=== PATIENT | female | born 1950 | race Caucasian/White ===

== ENCOUNTER 2022-08-17 11:31 | Inpatient (IN) | payer OTHER ==
[2022-08-17] MEDS ORDERED: dilTIAZem HCL 50 MG/10 ML - 10 ML VIAL IVPUSH ONE ×2 (12:46→14:56)
[2022-08-17] MEDS ORDERED: dilTIAZem HCL 125 MG/25 ML - 25 ML VIAL ONE ×2 (12:52→15:10)
[2022-08-17 13:10] LABS: BASO % 0.9 % (0-2.0); EOS % 0.9 % (0-4.5); HEMATOCRIT 41.1 % (32.4-45.2); HEMOGLOBIN 12.9 GM/dL (10.7-15.3); LYMPH % 19.2 % (8-40); MCH 24.8 pg (25.7-33.7); MCHC 31.3 g/dl (32.0-36.0); MEAN PLT VOLUME 10.7 fl (7.5-11.1); MONO % 6.1 % (3.8-10.2); NEUT % 72.9 % (42.8-82.8); PLATELET COUNT 251 10^3/uL (134-434); RDW 14.9 % (11.6-15.6)
[2022-08-17 13:31] LABS: CALCIUM 8.9 mg/dL (8.5-10.1)
[2022-08-17 13:32] LABS: ALBUMIN 3.2 g/dl (3.4-5.0); BLOOD UREA NITROGEN 23.4 mg/dL (7-18)
[2022-08-17 13:35] LABS: CREATININE 0.7 mg/dL (0.55-1.3)
[2022-08-17 13:36] LABS: BILIRUBIN,TOTAL 0.6 mg/dL (0.2-1)
[2022-08-17 13:37] LABS: TOT PROT 6.1 g/dl (6.4-8.2)
[2022-08-17 13:40] LABS: N-TERMINAL BNP 6848.4 pg/ml (5-125)
[2022-08-17] MEDS ORDERED: FUROSEMIDE 40 MG/4 ML INJECTABLE VIAL IVPUSH ONE (14:25)
[2022-08-17] MEDS ORDERED: FUROSEMIDE 40 MG/4 ML INJECTABLE VIAL ONE (14:28)
[2022-08-17 15:12] LABS: EPI CELLS >36 /uL (0-25.1); HYALINE CASTS 3 /uL (0-3.1); URINE APPEARANCE CLEAR; URINE BACTERIA 340 /uL (0-1359); URINE BILIRUBIN NEGATIVE (NEGATIVE); URINE COLOR YELLOW; URINE GLUCOSE (UA) NEGATIVE (NEGATIVE); URINE KETONE TRACE (NEGATIVE); URINE LEUK ESTERASE 1+ (NEGATIVE); URINE NITRITE NEGATIVE (NEGATIVE); URINE PROTEIN TRACE (NEGATIVE); URINE RBC 9 /uL (0-23.9); URINE UROBILINOGEN 0.2 mg/dL (0.2-1.0); URINE WBC 45 /uL (0-25.8)
[2022-08-17] MEDS ORDERED: METOPROLOL TARTRATE 25 MG TABLET (FP) ONE (21:21)
[2022-08-17] MEDS ORDERED: APIXABAN 5 MG TABLET ONE (21:21)
[2022-08-17] MEDS ORDERED: dilTIAZem HCL 30 MG TABLET ONE (21:21)
[2022-08-17] MEDS: METOPROLOL TARTRATE 50 MG TABLET (FP) PO SCH (21:44)
[2022-08-17] MEDS: APIXABAN 5 MG TABLET PO SCH (21:44)
[2022-08-17] MEDS: dilTIAZem HCL 30 MG TABLET PO SCH (21:44)
[2022-08-18] MEDS ORDERED: METOPROLOL TARTRATE 25 MG TABLET (FP) ONE (06:28)
[2022-08-18] MEDS ORDERED: dilTIAZem HCL 30 MG TABLET ONE ×2 (06:29→06:43)
[2022-08-18] MEDS: METOPROLOL TARTRATE 50 MG TABLET (FP) PO SCH ×2 (06:44→20:59)
[2022-08-18] MEDS: dilTIAZem HCL 30 MG TABLET PO SCH ×3 (06:44→20:59)
[2022-08-18 07:08] LABS: BASO % 0.7 % (0-2.0); HEMATOCRIT 39.7 % (32.4-45.2); HEMOGLOBIN 12.8 GM/dL (10.7-15.3); LYMPH % 24.9 % (8-40); MCH 25.2 pg (25.7-33.7); MCHC 32.2 g/dl (32.0-36.0); MEAN CELL VOLUME 78.3 fl (80-96); MONO % 8.9 % (3.8-10.2); NEUT % 62.5 % (42.8-82.8); PLATELET COUNT 246 10^3/uL (134-434); RBC 5.07 M/mm3 (3.60-5.2); RDW 14.8 % (11.6-15.6); WHITE BLOOD COUNT 8.4 K/mm3 (4.0-10.0)
[2022-08-18] MEDS ORDERED: APIXABAN 5 MG TABLET ONE (09:02)
[2022-08-18] MEDS ORDERED: FUROSEMIDE 40 MG/4 ML INJECTABLE VIAL ONE (09:02)
[2022-08-18] MEDS: APIXABAN 5 MG TABLET PO SCH ×2 (09:10→20:59)
[2022-08-18] MEDS: FUROSEMIDE 40 MG/4 ML INJECTABLE VIAL IVPUSH SCH (09:10)
[2022-08-18] MEDS ORDERED: dilTIAZem HCL 60 MG TABLET ONE (14:15)
[2022-08-18 17:41] VITALS: BMI 30.3
[2022-08-19] MEDS: dilTIAZem HCL 30 MG TABLET PO SCH ×2 (06:21→13:59)
[2022-08-19 06:45] LABS: HEMOGLOBIN 12.6 GM/dL (10.7-15.3); MCH 24.9 pg (25.7-33.7); MCHC 31.6 g/dl (32.0-36.0); MEAN CELL VOLUME 78.9 fl (80-96); MEAN PLT VOLUME 10.3 fl (7.5-11.1); PLATELET COUNT 249 10^3/uL (134-434); RBC 5.07 M/mm3 (3.60-5.2); RDW 15.1 % (11.6-15.6); WHITE BLOOD COUNT 8.4 K/mm3 (4.0-10.0)
[2022-08-19 06:58] LABS: ALBUMIN 3.1 g/dl (3.4-5.0)
[2022-08-19 07:01] LABS: CREATININE 0.8 mg/dL (0.55-1.3)
[2022-08-19 07:02] LABS: BILIRUBIN,TOTAL 0.6 mg/dL (0.2-1)
[2022-08-19 07:03] LABS: TOT PROT 5.8 g/dl (6.4-8.2)
[2022-08-19] MEDS: METOPROLOL TARTRATE 50 MG TABLET (FP) PO SCH (09:19)
[2022-08-19] MEDS: FUROSEMIDE 40 MG/4 ML INJECTABLE VIAL IVPUSH SCH (09:19)
[2022-08-19] MEDS: APIXABAN 5 MG TABLET PO SCH (09:19)
[2022-08-19 09:29] VITALS: RESP 16
[2022-08-19 14:02] VITALS: BP 118/76; PULSE 85; TEMP 97.9
== END 2022-08-19 14:32 | disposition home or self-care (01) | DRG 201 ==
LOC: JER 11:31 → JERBED 16:06 → J2W 08-18 14:44
PROVIDERS: ADMIT Internal Medicine; ATTEND Internal Medicine
DX: I48.91 Unspecified atrial fibrillation (principal); I50.21 Acute systolic (congestive) heart failure; I11.0 Hypertensive heart disease with heart failure; E78.5 Hyperlipidemia, unspecified; R06.02 Shortness of breath; R07.89 Other chest pain; R60.9 Edema, unspecified
CPT/HCPCS: 0241U-QW; 36415; 71045-TC-FY; 76604; 80053; 81003; 82550; 82553; 82607; 83880; 84443; 84484; 85025; 85027; 85379; 87086; 93005; 93010; 93306-TC; 93308; 93970-TC; 99285-25

== ENCOUNTER 2022-12-22 16:17 | Inpatient (IN) | payer OTHER ==
[2022-12-22] MEDS ORDERED: VANCOMYCIN 1 GM in D5W (PRE-DOCKED) 1,000 MG/250 ML IVPB ONE (17:48)
[2022-12-22] MEDS ORDERED: PIPERACILLIN/TAZOB 3.375 GM 3.375 GM in DEXTROSE 5%-WATER - 50 ML IVPB ONE (17:48)
[2022-12-22] MEDS ORDERED: SODIUM CHLORIDE 500 ML IV STA (17:48)
[2022-12-22] MEDS ORDERED: VANCOMYCIN/WATER FOR INJ (PEG) 1,000 MG/200 ML BAG IVPB ONE (18:01)
[2022-12-22] MEDS ORDERED: PIPERACILLIN/TAZOB 3.375 GM 3.375 GM/50 ML BAG IVPB ONE (18:01)
[2022-12-22 19:03] LABS: VENOUS BASE EXCESS -5.6 mmol/L (-2-2); VENOUS O2 SATURATION 42.2 % (70-80); VENOUS PCO2 37.8 mmHg (38-52); VENOUS PH 7.333 (7.310-7.410)
[2022-12-22 19:08] LABS: HEMATOCRIT 43.6 % (32.4-45.2); HEMOGLOBIN 13.6 GM/dL (10.7-15.3); LYMPH % 8.4 % (8-40); MCH 23.1 pg (25.7-33.7); MCHC 31.3 g/dl (32.0-36.0); MEAN CELL VOLUME 73.7 fl (80-96); MEAN PLT VOLUME 9.5 fl (7.5-11.1); MONO % 7.1 % (3.8-10.2); NEUT % 84.5 % (42.8-82.8); PLATELET COUNT 235 10^3/uL (134-434); RBC 5.91 M/mm3 (3.60-5.2); RDW 17.8 % (11.6-15.6); WHITE BLOOD COUNT 12.9 K/mm3 (4.0-10.0)
[2022-12-22 19:10] LABS: EPI CELLS 27 /uL (0-25.1); HYALINE CASTS 20 /uL (0-3.1); PH,URINE 6.5 (5.0-8.0); URINE APPEARANCE TURBID; URINE BACTERIA 8 /uL (0-1359); URINE BILIRUBIN 1+ (NEGATIVE); URINE COLOR DK YELLOW; URINE GLUCOSE (UA) NEGATIVE (NEGATIVE); URINE KETONE NEGATIVE (NEGATIVE); URINE LEUK ESTERASE NEGATIVE (NEGATIVE); URINE NITRITE NEGATIVE (NEGATIVE); URINE PROTEIN 1+ (NEGATIVE); URINE RBC 19 /uL (0-23.9); URINE WBC 23 /uL (0-25.8)
[2022-12-22 19:14] LABS: INR 1.76 (0.83-1.09); PROTHROMBIN TIME (PATIENT) 20.4 SEC (9.7-13.0)
[2022-12-22 19:17] LABS: ACTIVATED PTT 29.7 SECONDS (25.2-36.5)
[2022-12-22 19:27] LABS: CALCIUM 9.5 mg/dL (8.5-10.1)
[2022-12-22 19:28] LABS: BLOOD UREA NITROGEN 42.8 mg/dL (7-18); MAGNESIUM 2.7 mg/dL (1.8-2.4)
[2022-12-22 19:31] LABS: CREATININE 1.4 mg/dL (0.55-1.3); PHOSPHOROUS 4.8 mg/dL (2.5-4.9)
[2022-12-22 19:32] LABS: BILIRUBIN,TOTAL 1.9 mg/dL (0.2-1)
[2022-12-22 19:33] LABS: TOT PROT 6.4 g/dl (6.4-8.2)
[2022-12-22 19:36] LABS: N-TERMINAL BNP 34125.6 pg/ml (5-125)
[2022-12-22 19:41] LABS: LACTIC ACID 3.5 mmol/L (0.4-2.0)
[2022-12-22] MEDS ORDERED: dilTIAZem HCL 30 MG TABLET PO ONE (20:12)
[2022-12-22] MEDS ORDERED: ERYTHROMYCIN 0.5% OPHTHALMIC OINTMENT 3.5 GM TUBE OU STA (20:13)
[2022-12-22] MEDS ORDERED: SODIUM CHLORIDE 250 ML IV STA (20:13)
[2022-12-22] MEDS ORDERED: dilTIAZem HCL 30 MG TABLET ONE (20:27)
[2022-12-22] MEDS ORDERED: ACETAMINOPHEN 1000 MG/100 ML BAG IVPB ONE (21:29)
[2022-12-22 21:41] LABS: URINE CRYSTALS MODERATE /hpf
[2022-12-22] MEDS ORDERED: ACETAMINOPHEN INJECTION 100 ML IVPB ONE (21:43)
[2022-12-22 22:42] LABS: LACTIC ACID 2.9 mmol/L (0.4-2.0)
[2022-12-23 08:35] LABS: BASO % 0.1 % (0-2.0); HEMATOCRIT 40.1 % (32.4-45.2); HEMOGLOBIN 12.5 GM/dL (10.7-15.3); MCHC 31.1 g/dl (32.0-36.0)
[2022-12-23 08:36] LABS: EOS % 0.3 % (0-4.5); LYMPH % 8.2 % (8-40); MCH 22.5 pg (25.7-33.7); MEAN CELL VOLUME 72.4 fl (80-96); MEAN PLT VOLUME 9.8 fl (7.5-11.1); NEUT % 82.4 % (42.8-82.8); PLATELET COUNT 196 10^3/uL (134-434); RBC 5.53 M/mm3 (3.60-5.2); RDW 17.2 % (11.6-15.6); WHITE BLOOD COUNT 12.6 K/mm3 (4.0-10.0)
[2022-12-23 09:16] LABS: CALCIUM 8.9 mg/dL (8.5-10.1)
[2022-12-23 09:17] LABS: ALBUMIN 2.6 g/dl (3.4-5.0); MAGNESIUM 2.5 mg/dL (1.8-2.4)
[2022-12-23 09:18] LABS: BLOOD UREA NITROGEN 41.8 mg/dL (7-18)
[2022-12-23 09:20] LABS: CREATININE 1.2 mg/dL (0.55-1.3)
[2022-12-23 09:22] LABS: TOT PROT 5.4 g/dl (6.4-8.2)
[2022-12-23 09:23] LABS: BILIRUBIN,TOTAL 1.6 mg/dL (0.2-1)
[2022-12-23] MEDS: METOPROLOL TARTRATE 50 MG TABLET (FP) PO SCH ×2 (09:48→22:07)
[2022-12-23] MEDS: APIXABAN 5 MG TABLET PO SCH ×2 (09:48→22:06)
[2022-12-23] MEDS ORDERED: CEFTRIAXONE 1 GM in DEXTROSE 5%-WATER - 50 ML IVPB SCH (10:00)
[2022-12-23] MEDS: FUROSEMIDE 40 MG/4 ML INJECTABLE VIAL IVPUSH SCH (12:29)
[2022-12-23] MEDS: dilTIAZem HCL 25 MG/5 ML - 5 ML VIAL IVPUSH PRN (12:32)
[2022-12-23] MEDS: CEFEPIME 1 GM in DEXTROSE 5%-WATER 100 ML IVPB SCH (17:11)
[2022-12-24] MEDS: CEFEPIME 1 GM in DEXTROSE 5%-WATER 100 ML IVPB SCH ×3 (02:30→17:04)
[2022-12-24 08:28] LABS: HEMATOCRIT 40.7 % (32.4-45.2); HEMOGLOBIN 12.5 GM/dL (10.7-15.3); MCH 22.3 pg (25.7-33.7); MCHC 30.7 g/dl (32.0-36.0); MEAN CELL VOLUME 72.6 fl (80-96); MEAN PLT VOLUME 10.2 fl (7.5-11.1); PLATELET COUNT 210 10^3/uL (134-434); RBC 5.61 M/mm3 (3.60-5.2); RDW 17.2 % (11.6-15.6); WHITE BLOOD COUNT 16.7 K/mm3 (4.0-10.0)
[2022-12-24 08:34] LABS: BLOOD UREA NITROGEN 40.1 mg/dL (7-18)
[2022-12-24 08:35] LABS: ALBUMIN 2.4 g/dl (3.4-5.0); CALCIUM 8.7 mg/dL (8.5-10.1)
[2022-12-24 08:37] LABS: CREATININE 1.2 mg/dL (0.55-1.3)
[2022-12-24 08:39] LABS: BILIRUBIN,TOTAL 1.2 mg/dL (0.2-1); TOT PROT 5.6 g/dl (6.4-8.2)
[2022-12-24] MEDS: FUROSEMIDE 40 MG/4 ML INJECTABLE VIAL IVPUSH SCH (10:05)
[2022-12-24] MEDS: METOPROLOL TARTRATE 50 MG TABLET (FP) PO SCH ×2 (10:05→22:19)
[2022-12-24] MEDS: APIXABAN 5 MG TABLET PO SCH ×2 (10:05→22:20)
[2022-12-24] MEDS: dilTIAZem HCL 25 MG/5 ML - 5 ML VIAL IVPUSH PRN (10:23)
[2022-12-24] MEDS: dilTIAZem HCL 30 MG TABLET PO SCH ×2 (10:29→22:19)
[2022-12-24] MEDS ORDERED: METOPROLOL TARTRATE 5 MG/5 ML VIAL IVPUSH PRN (12:51)
[2022-12-25] MEDS: CEFEPIME 1 GM in DEXTROSE 5%-WATER 100 ML IVPB SCH ×3 (01:56→18:25)
[2022-12-25 08:17] LABS: HEMATOCRIT 40.8 % (32.4-45.2); HEMOGLOBIN 12.8 GM/dL (10.7-15.3); MCH 22.9 pg (25.7-33.7); MCHC 31.4 g/dl (32.0-36.0); MEAN CELL VOLUME 73.1 fl (80-96); MEAN PLT VOLUME 9.5 fl (7.5-11.1); PLATELET COUNT 211 10^3/uL (134-434); RBC 5.57 M/mm3 (3.60-5.2); RDW 17.9 % (11.6-15.6); WHITE BLOOD COUNT 16.1 K/mm3 (4.0-10.0)
[2022-12-25 08:45] LABS: CALCIUM 8.4 mg/dL (8.5-10.1)
[2022-12-25 08:46] LABS: ALBUMIN 2.2 g/dl (3.4-5.0); BLOOD UREA NITROGEN 39.5 mg/dL (7-18)
[2022-12-25 08:49] LABS: CREATININE 1.2 mg/dL (0.55-1.3)
[2022-12-25 08:50] LABS: TOT PROT 5.6 g/dl (6.4-8.2)
[2022-12-25 08:51] LABS: BILIRUBIN,TOTAL 1.4 mg/dL (0.2-1)
[2022-12-25] MEDS: APIXABAN 5 MG TABLET PO SCH ×2 (10:42→22:00)
[2022-12-25] MEDS: FUROSEMIDE 40 MG/4 ML INJECTABLE VIAL IVPUSH SCH (10:42)
[2022-12-25] MEDS: METOPROLOL TARTRATE 25 MG TABLET (FP) PO SCH ×2 (10:42→21:59)
[2022-12-25] MEDS: dilTIAZem HCL 30 MG TABLET PO SCH ×2 (10:42→21:59)
[2022-12-25] MEDS: ACETAMINOPHEN 325 MG TABLET (FP) PO PRN (20:29)
[2022-12-26] MEDS: CEFEPIME 1 GM in DEXTROSE 5%-WATER 100 ML IVPB SCH ×3 (03:19→18:25)
[2022-12-26 08:41] LABS: CALCIUM 8.2 mg/dL (8.5-10.1)
[2022-12-26 08:42] LABS: BLOOD UREA NITROGEN 36.3 mg/dL (7-18)
[2022-12-26 08:45] LABS: CREATININE 0.9 mg/dL (0.55-1.3)
[2022-12-26] MEDS: AMINO ACIDS/PROTEIN HYDROLYS 30 ML LIQUID.PKT PO SCH ×2 (11:18→18:24)
[2022-12-26] MEDS: MULTIVITAMINS (DAILY MVI) TABLET (FP) PO SCH (11:19)
[2022-12-26] MEDS: APIXABAN 5 MG TABLET PO SCH ×2 (11:19→21:45)
[2022-12-26] MEDS: METOPROLOL TARTRATE 25 MG TABLET (FP) PO SCH (11:20)
[2022-12-26] MEDS: ASCORBIC ACID 500 MG TABLET (FP) PO SCH ×2 (11:20→21:45)
[2022-12-26] MEDS: FUROSEMIDE 40 MG/4 ML INJECTABLE VIAL IVPUSH SCH (11:20)
[2022-12-26] MEDS: dilTIAZem HCL 30 MG TABLET PO SCH (11:20)
[2022-12-26] MEDS: AMIODARONE HCL 200 MG TABLET PO SCH ×2 (14:02→21:45)
[2022-12-27] MEDS: CEFEPIME 1 GM in DEXTROSE 5%-WATER 100 ML IVPB SCH ×3 (03:20→17:56)
[2022-12-27 08:13] LABS: BASO % 0.2 % (0-2.0); EOS % 0.7 % (0-4.5); HEMATOCRIT 41.1 % (32.4-45.2); HEMOGLOBIN 12.8 GM/dL (10.7-15.3); LYMPH % 7.8 % (8-40); MCH 22.5 pg (25.7-33.7); MCHC 31.1 g/dl (32.0-36.0); MEAN CELL VOLUME 72.4 fl (80-96); MEAN PLT VOLUME 9.2 fl (7.5-11.1); MONO % 9.5 % (3.8-10.2); NEUT % 81.8 % (42.8-82.8); PLATELET COUNT 250 10^3/uL (134-434); RBC 5.68 M/mm3 (3.60-5.2); RDW 17.5 % (11.6-15.6); WHITE BLOOD COUNT 14.3 K/mm3 (4.0-10.0)
[2022-12-27 09:20] LABS: ALBUMIN 1.8 g/dl (3.4-5.0); BILIRUBIN,TOTAL 1.3 mg/dL (0.2-1); BLOOD UREA NITROGEN 42.3 mg/dL (7-18); CALCIUM 8.3 mg/dL (8.5-10.1); CREATININE 0.9 mg/dL (0.55-1.3); TOT PROT 5.4 g/dl (6.4-8.2)
[2022-12-27] MEDS: FUROSEMIDE 40 MG/4 ML INJECTABLE VIAL IVPUSH SCH (10:04)
[2022-12-27] MEDS: AMINO ACIDS/PROTEIN HYDROLYS 30 ML LIQUID.PKT PO SCH ×2 (10:04→17:56)
[2022-12-27] MEDS: APIXABAN 5 MG TABLET PO SCH ×2 (10:04→21:14)
[2022-12-27] MEDS: ASCORBIC ACID 500 MG TABLET (FP) PO SCH ×2 (10:05→21:15)
[2022-12-27] MEDS: AMIODARONE HCL 200 MG TABLET PO SCH ×2 (10:05→21:15)
[2022-12-27] MEDS: MULTIVITAMINS (DAILY MVI) TABLET (FP) PO SCH (10:05)
[2022-12-27 20:21] VITALS: BMI 34.9
[2022-12-28] MEDS: CEFEPIME 1 GM in DEXTROSE 5%-WATER 100 ML IVPB SCH ×3 (02:59→18:01)
[2022-12-28 07:42] LABS: BASO % 0.1 % (0-2.0); EOS % 1.3 % (0-4.5); HEMATOCRIT 40.2 % (32.4-45.2); HEMOGLOBIN 12.5 GM/dL (10.7-15.3); LYMPH % 7.3 % (8-40); MCH 22.5 pg (25.7-33.7); MCHC 31.2 g/dl (32.0-36.0); MEAN PLT VOLUME 9.7 fl (7.5-11.1); MONO % 11.4 % (3.8-10.2); NEUT % 79.9 % (42.8-82.8); PLATELET COUNT 268 10^3/uL (134-434); RBC 5.58 M/mm3 (3.60-5.2); RDW 17.2 % (11.6-15.6); WHITE BLOOD COUNT 13.6 K/mm3 (4.0-10.0)
[2022-12-28 08:12] LABS: CALCIUM 8.3 mg/dL (8.5-10.1)
[2022-12-28 08:13] LABS: ALBUMIN 1.8 g/dl (3.4-5.0); BLOOD UREA NITROGEN 43.4 mg/dL (7-18)
[2022-12-28 08:16] LABS: CREATININE 0.8 mg/dL (0.55-1.3)
[2022-12-28 08:17] LABS: TOT PROT 5.5 g/dl (6.4-8.2)
[2022-12-28 08:18] LABS: BILIRUBIN,TOTAL 1.2 mg/dL (0.2-1)
[2022-12-28] MEDS: ASCORBIC ACID 500 MG TABLET (FP) PO SCH ×2 (09:04→21:48)
[2022-12-28] MEDS: AMIODARONE HCL 200 MG TABLET PO SCH ×2 (09:04→21:48)
[2022-12-28] MEDS: MULTIVITAMINS (DAILY MVI) TABLET (FP) PO SCH (09:04)
[2022-12-28] MEDS: FUROSEMIDE 40 MG/4 ML INJECTABLE VIAL IVPUSH SCH (09:04)
[2022-12-28] MEDS: APIXABAN 5 MG TABLET PO SCH ×2 (09:04→21:48)
[2022-12-28] MEDS: AMINO ACIDS/PROTEIN HYDROLYS 30 ML LIQUID.PKT PO SCH ×2 (09:05→18:01)
[2022-12-28] MEDS: ZINC SULFATE 220 MG CAPSULE (FP) PO SCH (11:36)
[2022-12-28] MEDS: ACETAMINOPHEN 325 MG TABLET (FP) PO PRN (19:41)
[2022-12-29] MEDS: CEFEPIME 1 GM in DEXTROSE 5%-WATER 100 ML IVPB SCH ×3 (02:40→17:51)
[2022-12-29] MEDS: AMINO ACIDS/PROTEIN HYDROLYS 30 ML LIQUID.PKT PO SCH ×2 (09:56→17:51)
[2022-12-29] MEDS: AMIODARONE HCL 200 MG TABLET PO SCH ×2 (09:56→22:29)
[2022-12-29] MEDS: ACETAMINOPHEN 325 MG TABLET (FP) PO PRN ×2 (09:56→22:27)
[2022-12-29] MEDS: FUROSEMIDE 40 MG/4 ML INJECTABLE VIAL IVPUSH SCH (09:56)
[2022-12-29] MEDS: ZINC SULFATE 220 MG CAPSULE (FP) PO SCH (09:57)
[2022-12-29] MEDS: ASCORBIC ACID 500 MG TABLET (FP) PO SCH ×2 (09:57→22:28)
[2022-12-29] MEDS: APIXABAN 5 MG TABLET PO SCH ×2 (09:57→22:28)
[2022-12-29] MEDS: MULTIVITAMINS (DAILY MVI) TABLET (FP) PO SCH (09:57)
[2022-12-30] MEDS: CEFEPIME 1 GM in DEXTROSE 5%-WATER 100 ML IVPB SCH ×3 (01:36→17:46)
[2022-12-30] MEDS: ACETAMINOPHEN 325 MG TABLET (FP) PO PRN ×3 (06:06→20:16)
[2022-12-30 07:43] LABS: HEMATOCRIT 39.3 % (32.4-45.2); MCH 22.3 pg (25.7-33.7); MCHC 30.6 g/dl (32.0-36.0); MEAN CELL VOLUME 72.9 fl (80-96); MEAN PLT VOLUME 9.3 fl (7.5-11.1); PLATELET COUNT 280 10^3/uL (134-434); RBC 5.38 M/mm3 (3.60-5.2); RDW 17.4 % (11.6-15.6); WHITE BLOOD COUNT 11.5 K/mm3 (4.0-10.0)
[2022-12-30 08:03] LABS: CALCIUM 8.1 mg/dL (8.5-10.1)
[2022-12-30 08:04] LABS: ALBUMIN 1.6 g/dl (3.4-5.0)
[2022-12-30 08:07] LABS: CREATININE 0.8 mg/dL (0.55-1.3)
[2022-12-30 08:09] LABS: BILIRUBIN,TOTAL 0.8 mg/dL (0.2-1); TOT PROT 5.2 g/dl (6.4-8.2)
[2022-12-30] MEDS: ZINC OXIDE 20% TOPICAL OINTMENT 30 GM TUBE TP SCH ×2 (09:47→21:34)
[2022-12-30] MEDS: MULTIVITAMINS (DAILY MVI) TABLET (FP) PO SCH (09:48)
[2022-12-30] MEDS: AMIODARONE HCL 200 MG TABLET PO SCH ×2 (09:48→21:33)
[2022-12-30] MEDS: AMINO ACIDS/PROTEIN HYDROLYS 30 ML LIQUID.PKT PO SCH ×2 (09:48→17:46)
[2022-12-30] MEDS: ZINC SULFATE 220 MG CAPSULE (FP) PO SCH (09:49)
[2022-12-30] MEDS: FUROSEMIDE 40 MG TABLET (FP) PO SCH (09:49)
[2022-12-30] MEDS: APIXABAN 5 MG TABLET PO SCH ×2 (09:49→21:33)
[2022-12-30] MEDS: ASCORBIC ACID 500 MG TABLET (FP) PO SCH ×2 (09:49→21:33)
[2022-12-30] MEDS: NYSTATIN 100000 UNIT/GM TOPICAL OINTMENT 15 GM TUBE TP SCH ×2 (15:20→21:34)
[2022-12-30 22:00] VITALS: RESP 20
[2022-12-31] MEDS: ACETAMINOPHEN 325 MG TABLET (FP) PO PRN ×4 (01:54→18:36)
[2022-12-31] MEDS: CEFEPIME 1 GM in DEXTROSE 5%-WATER 100 ML IVPB SCH ×2 (03:39→10:09)
[2022-12-31] MEDS: AMINO ACIDS/PROTEIN HYDROLYS 30 ML LIQUID.PKT PO SCH ×2 (08:30→17:01)
[2022-12-31] MEDS: APIXABAN 5 MG TABLET PO SCH ×2 (10:08→21:18)
[2022-12-31] MEDS: ASCORBIC ACID 500 MG TABLET (FP) PO SCH ×2 (10:08→21:18)
[2022-12-31] MEDS: AMIODARONE HCL 200 MG TABLET PO SCH ×2 (10:08→21:18)
[2022-12-31] MEDS: ZINC OXIDE 20% TOPICAL OINTMENT 30 GM TUBE TP SCH ×2 (10:09→21:20)
[2022-12-31] MEDS: MULTIVITAMINS (DAILY MVI) TABLET (FP) PO SCH (10:09)
[2022-12-31] MEDS: NYSTATIN 100000 UNIT/GM TOPICAL OINTMENT 15 GM TUBE TP SCH ×2 (10:09→21:19)
[2022-12-31] MEDS: FUROSEMIDE 40 MG TABLET (FP) PO SCH (10:09)
[2022-12-31] MEDS: ZINC SULFATE 220 MG CAPSULE (FP) PO SCH (10:09)
[2022-12-31] MEDS: AMOX TR/POT CLAV 875MG/125MG TABLETS (FP) PO SCH (17:01)
[2023-01-01] MEDS: ACETAMINOPHEN 325 MG TABLET (FP) PO PRN ×2 (05:08→08:33)
[2023-01-01] MEDS: AMOX TR/POT CLAV 875MG/125MG TABLETS (FP) PO SCH (08:33)
[2023-01-01] MEDS: AMINO ACIDS/PROTEIN HYDROLYS 30 ML LIQUID.PKT PO SCH (08:33)
[2023-01-01] MEDS ORDERED: clonazePAM 0.5 MG TABLET PO PRN (08:48)
[2023-01-01] MEDS: NYSTATIN 100000 UNIT/GM TOPICAL OINTMENT 15 GM TUBE TP SCH (09:32)
[2023-01-01] MEDS: FUROSEMIDE 40 MG TABLET (FP) PO SCH (09:32)
[2023-01-01] MEDS: MULTIVITAMINS (DAILY MVI) TABLET (FP) PO SCH (09:32)
[2023-01-01] MEDS: AMIODARONE HCL 200 MG TABLET PO SCH (09:32)
[2023-01-01] MEDS: ZINC SULFATE 220 MG CAPSULE (FP) PO SCH (09:32)
[2023-01-01] MEDS: ZINC OXIDE 20% TOPICAL OINTMENT 30 GM TUBE TP SCH (09:32)
[2023-01-01] MEDS: ASCORBIC ACID 500 MG TABLET (FP) PO SCH (09:32)
[2023-01-01] MEDS: APIXABAN 5 MG TABLET PO SCH (09:32)
[2023-01-01 10:18] VITALS: BP 104/66; PULSE 114; TEMP 97.6
== END 2023-01-01 11:35 | DRG 194 ==
LOC: JER 16:17 → JERBED 21:59 → J4W 12-23 05:53
PROVIDERS: ADMIT Internal Medicine; ATTEND Internal Medicine
DX: I11.0 Hypertensive heart disease with heart failure (principal); I26.99 Other pulmonary embolism without acute cor pulmonale; J18.9 Pneumonia, unspecified organism; N17.9 Acute kidney failure, unspecified; E87.20 Acidosis, unspecified; I48.19 Other persistent atrial fibrillation; L03.115 Cellulitis of right lower limb; I50.23 Acute on chronic systolic (congestive) heart failure; I48.91 Unspecified atrial fibrillation; E66.9 Obesity, unspecified; Z68.33 Body mass index [BMI] 33.0-33.9, adult; E03.9 Hypothyroidism, unspecified
CPT/HCPCS: 0241U-QW; 36415; 71045-TC-FY; 71275-TC; 80048; 80053; 81003; 82550; 82803; 83605; 83735; 83880; 84100; 84439; 84443; 84484; 85025; 85027; 85610; 85730; 86850; 86900; 86901; 87040; 87086; 93005; 93010; 93306-TC; 93970-TC; 97116-GP; 97163-GP; 99291; C9803-CS; Q9967; U0003; U0005